=== PATIENT | male | born 2000 | race Caucasian/White ===

== ENCOUNTER 2021-05-10 18:47 | Emergency (ER) | payer BC ==
[~2021-05-10] VITALS: Ht 172.7 cm; Wt 65.0 kg
[2021-05-10 18:52] VITALS: BP 127/72
[2021-05-10 21:22] LABS: URINE AMPHETAMINE SCREEN NEGATIVE (Neg); URINE BARBITUATE SCREEN NEGATIVE (Neg); URINE BENZODIAZEPINES SCREEN NEGATIVE (Neg); URINE CANNABINOID SCREEN POSITIVE (Neg); URINE COCAINE SCREEN NEGATIVE (Neg); URINE METHADONE SCREEN NEGATIVE (Neg); URINE OPIATE SCREEN NEGATIVE (Neg); URINE PHENCYCLIDINE SCREEN NEGATIVE (Neg)
== END 2021-05-10 22:02 | disposition home or self-care (01) ==
LOC: ER 18:49
DX: R00.0 Tachycardia, unspecified (principal); R00.2 Palpitations; Z88.0 Allergy status to penicillin
CPT/HCPCS: 71045; 80305; 93005; 99285

== ENCOUNTER 2021-07-05 11:11 | Emergency (ER) | payer BC ==
[~2021-07-05] VITALS: Ht 172.7 cm; Wt 63.6 kg
[2021-07-05 11:42] VITALS: BP 117/41
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
[2021-07-05] MEDS ORDERED: acetaminophen 325mg tablet PO ONE (13:00)
[2021-07-05] MEDS ORDERED: HYDROcodone/acetaminophen 10/325mg tab PO ONE (13:00)
[2021-07-05] MEDS ORDERED: ketorolac trometh inj. 60 MG/2 ML VIAL IM ONE (13:00)
--- NOTE | 2021-07-05 13:20 | NUR ---
RECEIVED VO FROM DR. DILL TO REDUCE TYLENOL DOSE FROM 650MG TO 325MG PT WILL BE RECEIVING 325MG OF TYLENOL THAT IS IN [place]. PT TO RECEIVE TOTAL 650MG OF TYLENOL TOTAL.
[2021-07-06] MEDS ORDERED: KETO10TA2 PO (12:48)
[2021-07-06] MEDS ORDERED: HYDR-3965 PO (12:48)
== END 2021-07-05 16:08 | disposition home or self-care (01) ==
LOC: ER 11:12
DX: M79.601 Pain in right arm (principal); S52.124A Nondisplaced fracture of head of right radius, initial encounter for closed fracture; V86.96XA Unspecified occupant of dirt bike or motor/cross bike injured in nontraffic accident, initial encounter; Y93.89 Activity, other specified; Y92.89 Other specified places as the place of occurrence of the external cause; Y99.8 Other external cause status
CPT/HCPCS: 73080; 93971; 96372; 99284; J1885

== ENCOUNTER 2021-07-06 12:27 | Emergency (ER) | payer BC ==
[~2021-07-06] VITALS: Ht 172.7 cm; Wt 63.6 kg
[2021-07-06 12:40] VITALS: BP 118/63
[2021-07-06] MEDS ORDERED: HYDR-3965 PO (12:48)
[2021-07-06] MEDS ORDERED: KETO10TA2 PO (12:48)
== END 2021-07-06 12:59 | disposition home or self-care (01) ==
LOC: ER 12:27
DX: S52.125D Nondisplaced fracture of head of left radius, subsequent encounter for closed fracture with routine healing (principal); F12.90 Cannabis use, unspecified, uncomplicated; Z79.899 Other long term (current) drug therapy; Z88.0 Allergy status to penicillin; X58.XXXD Exposure to other specified factors, subsequent encounter
CPT/HCPCS: 99283

== ENCOUNTER 2021-08-17 13:16 | Emergency (ER) | payer BC ==
[~2021-08-17] VITALS: Ht 172.7 cm; Wt 68.2 kg
[~2021-08-17 13:16] MED LIST: BACI1PAC7 TOP; CEPH250T PO; IBUP-1984 PO; KETO10TA2 PO
[2021-08-17 18:37] VITALS: BP 121/102
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
[2021-08-17] MEDS ORDERED: BACI1PAC7 TP (19:02)
== END 2021-08-17 19:39 | disposition home or self-care (01) ==
LOC: ER 13:17
DX: T24.231D Burn of second degree of right lower leg, subsequent encounter (principal); F12.90 Cannabis use, unspecified, uncomplicated; Z88.0 Allergy status to penicillin; Z79.2 Long term (current) use of antibiotics; Z79.899 Other long term (current) drug therapy; X08.8XXD Exposure to other specified smoke, fire and flames, subsequent encounter
CPT/HCPCS: 99282

== ENCOUNTER 2021-09-09 21:13 | Emergency (ER) | payer BC ==
[~2021-09-09] VITALS: Ht 172.7 cm; Wt 72.7 kg
[~2021-09-09 21:13] MED LIST changes: -CEPH250T PO; -IBUP-1984 PO
[2021-09-09 23:53] VITALS: BP 106/75
[2021-09-10 00:58] LABS: BASOPHILS # (AUTO) 0.1 X10'3 (0-0.2); BASOPHILS % (AUTO) 1.1 % (0-1); EOSINOPHILS # (AUTO) 0.3 X10'3 (0-0.9); EOSINOPHILS % (AUTO) 5.4 % (0-6); HEMATOCRIT 39.4 % (42.0-52.0); HEMOGLOBIN 13.5 g/dl (14.0-17.9); LYMPHOCYTES # (AUTO) 1.7 X10'3 (1.1-4.8); LYMPHOCYTES % (AUTO) 29.3 % (21-51); MEAN CORPUSCULAR HEMOGLOBIN 31.5 PG (27.0-31.0); MEAN CORPUSCULAR HGB CONC 34.2 g/dL (33.0-36.5); MEAN CORPUSCULAR VOLUME 92.2 FL (78-98); MEAN PLATELET VOLUME 8.6 FL (7.4-10.4); MONOCYTES # (AUTO) 0.5 X10'3 (0-0.9); MONOCYTES % (AUTO) 9.1 % (2-12); NEUTROPHILS # (AUTO) 3.2 X10'3 (1.8-7.7); NEUTROPHILS % (AUTO) 55.1 % (42-75); PLATELET COUNT 198 X10'3 (140-440); RED BLOOD COUNT 4.27 X10'6 (4.70-6.10); RED CELL DISTRIBUTION WIDTH 12.7 % (11.5-14.5); WHITE BLOOD COUNT 5.8 X10'3 (4.5-11.0)
[2021-09-10 01:14] LABS: ALANINE AMINOTRANSFERASE 93 U/L (12-78); ALBUMIN 3.8 G/DL (3.4-5.0); ALBUMIN/GLOBULIN RATIO 1.2 (1.1-1.5); ALKALINE PHOSPHATASE 78 IU/L (46-116); ANION GAP 6 (8-16); ASPARTATE AMINO TRANSFERASE 33 U/L (10-37); BILIRUBIN,TOTAL 0.2 MG/DL (0.1-1.0); BLOOD UREA NITROGEN 25 MG/DL (7-18); BUN/CREATININE RATIO 37.9 (5.4-32.0); CALCIUM 8.5 MG/DL (8.5-10.1); CHLORIDE 109 MMOL/L (99-107); CREATININE 0.66 MG/DL (0.60-1.10); GLUCOSE 96 MG/DL (70-104); SODIUM 142 MMOL/L (135-145); TOTAL CARBON DIOXIDE 27.1 MMOL/L (24-32); TOTAL PROTEIN 7.1 G/DL (6.4-8.2); eGFR > 90 ML/MIN
[2021-09-10 01:24] LABS: MAGNESIUM 2.3 MG/DL (1.5-2.4)
[2021-09-10 01:27] LABS: D-DIMER < 0.19 MG/L FEU (0-0.50)
== END 2021-09-10 02:45 | disposition home or self-care (01) ==
LOC: ER 21:16
DX: R00.2 Palpitations (principal); F12.90 Cannabis use, unspecified, uncomplicated; Z88.0 Allergy status to penicillin; Z79.899 Other long term (current) drug therapy
CPT/HCPCS: 36415; 71045; 80053; 83735; 84443; 84484; 85025; 85379; 93005; 99285

== ENCOUNTER 2021-11-09 12:41 | Outpatient (CLI) | payer BC ==
[~2021-11-09 12:41] MED LIST changes: -BACI1PAC7 TOP
== END 2021-11-09 23:59 | disposition home or self-care (01) ==
LOC: CARD DIAG 12:41
PROVIDERS: ATTEND Anesthesiology
DX: Z02.4 Encounter for examination for driving license (principal); I34.1 Nonrheumatic mitral (valve) prolapse; I51.7 Cardiomegaly
CPT/HCPCS: 93306

== ENCOUNTER → 2025-01-17 | Emergency (ER) | payer BC ==
[~2025-01-17] VITALS: Ht 172.7 cm; Wt 64.7 kg
--- NOTE | 2025-01-17 20:38 | Physician Documentation ---
History of Present Illness ~ Chief Complaint: Headache Stated Complaint: HEAD PAIN Time Seen by MD: 20:13 Primary Medical Doctor: NONE Mode of Arrival: POV HPI 24-year-old male presents to the ED with a complaint of a headache for the last month. States that the pain is on both the front and the back of his head. States tonight he heard a pop which prompted him to come into the ED States he wants a CAT scan find out what is going on with the his head. Patient has been seen here previously for palpitations with no evidence of cardiac abnormality. Previously been evaluated at Dr. Jean via Holter monitor. Patient states he has a history of SVT. Denies any nausea chest pain shortness of breath Day of Onset: Jan 17, 2025 Medication Reconciliation Allergies: Coded Allergies: Penicillins (Verified Allergy, Unknown, 01/17/25) Scheduled Ketorolac Tromethamine (Ketorolac Tromethamine), 1 TAB PO Q6H PRN Past Medical History Past Medical History: *ADVISOR CONSULTANT*, Arrhythmia Past Surgical History: noncontributory Alcohol Use: None Drug Use: marijuana Lives In: Home Review of Systems All Other Systems at this time: Reviewed and Negative ROS As stated above in the HPI, otherwise all systems are reviewed and negative. Physical Exam Vital Signs: Source: Temporal, Heart Rate: 108, Respiratory Rate: 20, BP: 139/76, Pulse Oximetry: 98, Weight: 64.700 Physical Exam General: Alert, no apparent distress. HEENT: PERRL, EOMI, no injection, moist mucous membranes. Neck: Full range of motion. Respiratory: Lungs clear, no respiratory distress. Chest: No accessory muscle use. Cardiovascular: Regular rate and rhythm, no murmurs. Gastrointestinal: Soft, nontender, nondistended. Bowels sounds present. Extremities: Normal range of motion, no deformity. Neurologic: Oriented x4. Psychiatric: Normal mood and affect. Skin: Normal color, warm and dry. No edema, no ecchymosis. Progress Results/Orders Results/Orders Orders - EB CHINCHILLA INDUSTRIAL TRAINING SPECIALIST Urinalysis, Cult If Indicated (01/17/25 20:40) Completed Orders - EB CHINCHILLA INDUSTRIAL TRAINING SPECIALIST Cbc/Diff (01/17/25 20:40) BMP (01/17/25 20:40) Normal Saline 1000ml (0.9% Sodium Chlori (01/17/25 20:40) Potassium Cl Sr Tablet (K-Dur Tablet) (01/17/25 21:25) Vital Signs 01/17/25 01/17/25 01/17/25 01/17/25 19:58 20:13 20:41 21:36 Pulse 108 75 74 Resp 15 20 16 16 B/P (MAP) 139/76 106/78 (87) 110/78 Pulse Ox 98 98 98 O2 Flow Rate 0 Laboratory Tests Test 01/17/25 20:53 White Blood Count 7.0 Red Blood Count 4.86 Hemoglobin 15.5 Hematocrit 44.1 Mean Corpuscular Volume 90.7 Mean Corpuscular Hemoglobin 31.9 H Mean Corpuscular Hemoglobin Concent 35.2 Red Cell Distribution Width 12.4 Platelet Count 257 Mean Platelet Volume 8.9 Neutrophils (%) (Auto) 65.4 Lymphocytes (%) (Auto) 24.9 Monocytes (%) (Auto) 9.1 Eosinophils (%) (Auto) 0.2 Basophils (%) (Auto) 0.4 Neutrophils # (Auto) 4.6 Lymphocytes # (Auto) 1.8 Monocytes # (Auto) 0.6 Eosinophils # (Auto) 0.0 Basophils # (Auto) 0.0 CBC Comment Sodium Level 138 Potassium Level 3.4 L Chloride Level 99 Carbon Dioxide Level 25.5 Anion Gap 14 Blood Urea Nitrogen 15 Creatinine 0.97 Estimated GFR/1.73 m2 > 90 BUN/Creatinine Ratio 15.5 Glucose Level 92 Calcium Level 8.8 Albumin 4.5 Chemistry Comments Medical Decision Making Findings This patient presented with a suspected migraine which I attempted to treated him for. Refused fluids and Toradol shot. He requested a CT of his head, however I do not see any indication for that at this time, ,especially not emergently. his laboratory values were reassuring. At this time I am going to discharge him for outpatient evaluation Differential Dx:Considerations: Include: ESCOBAR-Cluster, ESCOBAR-Migraine, ESCOBAR- Hypertensive, ESCOBAR-Muscular contraction, ESCOBAR-Post lumbar puncture, Carbon monoxide toxicity, Close head injuyr, CVA, Fever induced, Hemorrhage-Epidural, Hemorrhage-Intracerebral, Hemorrhage-Subarachnoid, Hemorrhage-Subdural, Mass lesion, Meningitis, Post-traumtic, Pseudotumor cerebri, Sinusitis, Temporal arteritis, Trigeminal neuralgia, Other Departure Disposition: 01 HOME / SELF CARE / HOMELESS Impression: Primary Impression: Headache Condition: Improved Discharge Instructions: Headache Additional Instructions: Follow up with the primary care to obtain a referral to see you were not neurologist if you continue to have headaches Signature Scribe Signature: y Attestation: Scribed for Eb Chinchilla Np by Eb Pretty NP . 01/17/25 21:27 EB CHINCHILLA NP Jan 17, 2025 20:38
[2025-01-17] MEDS: normal saline 1000ML IV soln IVB ONE (20:56)
[2025-01-17 21:04] LABS: MEAN PLATELET VOLUME 8.9 FL (7.4-10.4); RED CELL DISTRIBUTION WIDTH 12.4 % (11.5-14.5)
[2025-01-17 21:20] LABS: CREATININE 0.97 MG/DL (0.60-1.10); TOTAL CARBON DIOXIDE 25.5 MMOL/L (24-32); eCRCL 106 ML/MIN; eGFR > 90 ML/MIN
[2025-01-17 21:36] VITALS: BP 110/78; PULSE 74; RESP 16; O2SAT 98
[2025-01-17] MEDS: potassium Cl 20 mEq SR tablet PO STA (21:36)
== END | disposition home or self-care (01) ==
LOC: ER 19:45
DX: R51.9 Headache, unspecified (principal); F12.90 Cannabis use, unspecified, uncomplicated; Z88.0 Allergy status to penicillin; Z79.899 Other long term (current) drug therapy
CPT/HCPCS: 36415; 80048; 85025; 96360; 99283; J7030